=== PATIENT | female | born 1950 | race Caucasian/White ===

== ENCOUNTER 2019-10-22 12:38 | Day surgery (SDC) | payer MEDICARE ==
[~2019-10-22] VITALS: Ht 170.2 cm; Wt 67.1 kg
[~2019-10-22 12:38] MED LIST: ANAS1 PO; PRAV20 PO
--- NOTE | 2019-10-22 13:13 | NUR ---
10/22/19 1313 TON REVELES ONE ATTEMPT BY CLAIRE IN RH VALVE ONE ATTEMPT BY CLAIRE IN WR ONE SUCCESSUL IN RAC BY RN PT TOW
== END 2019-10-22 14:41 | disposition home or self-care (01) ==
LOC: ORSCSDS 12:38
PROVIDERS: Surgery
PROC: 0DJD8ZZ Inspection of Lower Intestinal Tract, Via Natural or Artificial Opening Endoscopic (ICD-10-PCS; principal; 2019-10-22 13:45)
DX: Z12.11 Encounter for screening for malignant neoplasm of colon (principal); Z86.010 Personal history of colon polyps; E78.5 Hyperlipidemia, unspecified; K57.30 Diverticulosis of large intestine without perforation or abscess without bleeding; Z87.891 Personal history of nicotine dependence; Z79.899 Other long term (current) drug therapy
CPT/HCPCS: J2704; J7120

== ENCOUNTER → 2020-01-13 | Outpatient (CLI) | payer MEDICARE | END | disposition home or self-care (01) | LOC: LAB SHORT 15:23 → PLD 15:23 | DX: D48.5 Neoplasm of uncertain behavior of skin (principal) | CPT/HCPCS: 88305 ==